=== PATIENT | female | born 2005 | race Caucasian/White ===

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

== ENCOUNTER → 2023-07-19 | Outpatient (REF) | payer MEDICAID, OTHER ==
[2023-07-19 23:21] LABS: CHLAMYDIA DNA AMPLIFICATION NEGATIVE (NEGATIVE); GC DNA AMPLIFICATION NEGATIVE (NEGATIVE)
== END ==
LOC: M SFHCWAGY 17:23
PROVIDERS: ATTEND Nurse Practitioner Family
DX: Z11.3 Encounter for screening for infections with a predominantly sexual mode of transmission (principal)

== ENCOUNTER → 2024-09-15 | Outpatient (CLI) | payer OTHER | LOC: M RAD 14:16 | PROVIDERS: ATTEND Advanced Practice Midwife | DX: O26.891 Other specified pregnancy related conditions, first trimester (principal); R10.2 Pelvic and perineal pain; Z3A.01 Less than 8 weeks gestation of pregnancy ==

== ENCOUNTER → 2024-10-08 | Outpatient (CLI) | payer OTHER ==
[2024-10-08 16:11] LABS: HEMATOCRIT 35.4 % (36.0-47.0); HEMOGLOBIN 11.6 g/dl (12.0-15.5); MEAN CORPUSCULAR HGB CONC 32.8 g/dl (32.0-36.5); MEAN CORPUSCULAR VOLUME 79.2 fl (80.0-96.0); PLATELET COUNT, AUTOMATED 267 10^3/uL (150-450); RED BLOOD COUNT 4.47 10^6/uL (4.00-5.40); WHITE BLOOD COUNT 8.7 10^3/uL (4.0-10.0)
[2024-10-08 17:08] LABS: HIV 1&2 SCREEN NEGATIVE (NEGATIVE); Trichomonas vaginalis (AMP) NOT DETECTED (NEGATIVE)
[2024-10-08 17:16] LABS: HEPATITIS C VIRUS ABY INDEX 0.03 INDEX (<0.8)
[2024-10-08 17:32] LABS: GC DNA AMPLIFICATION NEGATIVE (NEGATIVE)
== END ==
LOC: M PLALAB 13:47
PROVIDERS: ATTEND Nurse Practitioner Family
DX: Z34.81 Encounter for supervision of other normal pregnancy, first trimester (principal)

== ENCOUNTER 2024-11-07 14:26 | Emergency (ER) | payer OTHER ==
[~2024-11-07] VITALS: Ht 165.1 cm; Wt 64.5 kg
[2024-11-07 14:29] VITALS: BP 115/66; TEMP 98.8; O2SAT 98
== END 2024-11-07 19:13 | disposition left against medical advice (07) ==
LOC: M ED 14:26
DX: Z53.21 Procedure and treatment not carried out due to patient leaving prior to being seen by health care provider (principal)

== ENCOUNTER → 2024-11-20 | Outpatient (CLI) | payer OTHER | LOC: M WHC 14:07 | PROVIDERS: ATTEND Advanced Practice Midwife | DX: Z53.9 Procedure and treatment not carried out, unspecified reason (principal) ==

== ENCOUNTER 2025-01-22 16:51 | Outpatient (CLI) | payer OTHER ==
[~2025-01-22] VITALS: Ht 165.1 cm; Wt 66.0 kg
[2025-01-22 17:06] VITALS: BP 109/62
[2025-01-22] MEDS ORDERED: ACET-907 PO (17:07)
[2025-01-22] MEDS ORDERED: HOME MED LIST COMPLETE! XX SCH (17:15)
[2025-01-22 18:37] VITALS: BP 104/59
== END 2025-01-22 19:14 | disposition home or self-care (01) ==
LOC: M LDO 16:51
PROVIDERS: ATTEND Obstetrics & Gynecology
DX: O36.8120 Decreased fetal movements, second trimester, not applicable or unspecified (principal); O34.211 Maternal care for low transverse scar from previous cesarean delivery; Z3A.25 25 weeks gestation of pregnancy
CPT/HCPCS: 59025; G0463

== ENCOUNTER → 2025-01-28 | Outpatient (CLI) | payer OTHER ==
[~2025-01-28] MED LIST changes: +ACET-907 PO
[2025-01-28 13:45] LABS: PLATELET COUNT, AUTOMATED 227 10^3/uL (150-450)
[2025-01-28 14:09] LABS: GLUCOSE CHALLENGE TEST 1 HOUR 77 MG/DL (LESS THAN 140)
[2025-01-28 14:45] LABS: HIV 1&2 SCREEN NEGATIVE (NEGATIVE)
[2025-01-28 14:52] LABS: HEPATITIS C VIRUS ABY INDEX < 0.02 INDEX (<0.8)
[2025-01-28 16:36] LABS: Trichomonas vaginalis (AMP) POSITIVE (NEGATIVE)
[2025-01-28 17:08] LABS: GC DNA AMPLIFICATION NEGATIVE (NEGATIVE)
== END ==
LOC: M PLALAB 11:05
PROVIDERS: ATTEND Nurse Practitioner Family
DX: Z34.80 Encounter for supervision of other normal pregnancy, unspecified trimester (principal)

== ENCOUNTER 2025-03-04 10:06 | Outpatient (CLI) | payer OTHER ==
[~2025-03-04] VITALS: Ht 165.1 cm; Wt 63.6 kg
[~2025-03-04 10:06] MED LIST changes: +ALBUTEROL SULFATE 2.5 MG/0.5 ML INH CONCENTRATE NEB SOLN INH PRN; +EPINEPHrine INJ 1 MG/ML 1ML AMP IM PRN; +diphenhydrAMINE 50 MG/ML VIAL IV PRN
[2025-03-04 10:20] VITALS: BP 101/63; O2SAT 100
[2025-03-04] MEDS ORDERED: ACETAMINOPHEN 325 MG TAB PO ONE (10:30)
[2025-03-04] MEDS: IRON SUCROSE 200MG IVP IV ONE (10:50)
[2025-03-04 11:10] VITALS: BP 110/59; O2SAT 98
[2025-03-04 12:10] VITALS: BP 117/60; O2SAT 100
== END 2025-03-04 12:10 ==
LOC: M INFU 10:06
PROVIDERS: ATTEND Nurse Practitioner Family
DX: D50.9 Iron deficiency anemia, unspecified (principal)
CPT/HCPCS: 96374; J1756

== ENCOUNTER 2025-03-11 10:03 | Outpatient (CLI) | payer OTHER ==
[2025-03-11 10:10] VITALS: BP 99/58; O2SAT 100
[2025-03-11] MEDS: ACETAMINOPHEN 650 MG PO ONE (10:18)
[2025-03-11] MEDS: IRON SUCROSE 200MG IVP IV ONE (10:39)
[2025-03-11 11:00] VITALS: BP 100/63; O2SAT 99
== END 2025-03-11 11:06 | disposition home or self-care (01) ==
LOC: M INFU 10:03
PROVIDERS: ATTEND Nurse Practitioner Family
DX: D50.9 Iron deficiency anemia, unspecified (principal)
CPT/HCPCS: 96374; J1756

== ENCOUNTER 2025-03-23 13:33 | Outpatient (CLI) | payer OTHER ==
[~2025-03-23] VITALS: Ht 165.1 cm; Wt 67.8 kg
[~2025-03-23 13:33] MED LIST changes: -ALBUTEROL SULFATE 2.5 MG/0.5 ML INH CONCENTRATE NEB SOLN INH PRN; -EPINEPHrine INJ 1 MG/ML 1ML AMP IM PRN; -diphenhydrAMINE 50 MG/ML VIAL IV PRN
== END 2025-03-23 14:25 | disposition home or self-care (01) ==
LOC: M LDO 13:33
PROVIDERS: ATTEND Advanced Practice Midwife
DX: O36.8130 Decreased fetal movements, third trimester, not applicable or unspecified (principal); O99.013 Anemia complicating pregnancy, third trimester; O34.211 Maternal care for low transverse scar from previous cesarean delivery; O35.9XX0 Maternal care for (suspected) fetal abnormality and damage, unspecified, not applicable or unspecified; D50.9 Iron deficiency anemia, unspecified; Z3A.33 33 weeks gestation of pregnancy
CPT/HCPCS: 59025; G0463

== ENCOUNTER → 2025-04-09 | Outpatient (CLI) | payer OTHER ==
[2025-04-09 17:46] LABS: PLATELET COUNT, AUTOMATED 272 10^3/uL (150-450)
== END ==
LOC: M PLALAB 15:46
PROVIDERS: ATTEND Nurse Practitioner Family
DX: O99.013 Anemia complicating pregnancy, third trimester (principal); Z3A.36 36 weeks gestation of pregnancy

== ENCOUNTER → 2025-04-09 | Outpatient (REF) | payer OTHER | LOC: M PLALAB 15:17 | PROVIDERS: ATTEND Nurse Practitioner Family | DX: Z36.89 Encounter for other specified antenatal screening (principal); Z3A.36 36 weeks gestation of pregnancy ==

== ENCOUNTER → 2025-04-16 | Outpatient (REF) | payer OTHER ==
[2025-04-16 18:19] LABS: Trichomonas vaginalis (AMP) NOT DETECTED (NEGATIVE)
[2025-04-16 18:43] LABS: GC DNA AMPLIFICATION NEGATIVE (NEGATIVE)
== END ==
LOC: M LAB REF 14:00
PROVIDERS: ATTEND Advanced Practice Midwife
DX: O34.211 Maternal care for low transverse scar from previous cesarean delivery (principal); Z3A.00 Weeks of gestation of pregnancy not specified

== ENCOUNTER 2025-04-21 10:15 | Inpatient (IN) | payer OTHER, MEDICAID ==
[~2025-04-21] VITALS: Ht 165.1 cm; Wt 70.6 kg
[2025-04-21] VITALS (9 sets, daily range): BP systolic 101–129; BP diastolic 56–81
[2025-04-21] MEDS ORDERED: HOME MED LIST COMPLETE! XX SCH (10:30)
[2025-04-21] MEDS ORDERED: NS (Normal Saline) 0.9% 1,000 ML IV ONE (15:05)
[2025-04-21] MEDS: ACETAMINOPHEN 500 MG TAB PO ONE (15:13)
[2025-04-21] MEDS: LR 1,000 ML IV ONE (15:15)
[2025-04-21] MEDS ORDERED: LR 1,000 ML IV ONE (18:00)
[2025-04-21 22:29] LABS: PLATELET COUNT, AUTOMATED 220 10^3/uL (150-450)
[2025-04-21 23:52] LABS: KETONE, URINE AUTO RFX 1+ mg/dL (NEGATIVE); LEUKOCYTE ESTERASE UR AUTO RFX NEGATIVE (NEGATIVE); NITRITE, URINE AUTO RFX NEGATIVE (NEGATIVE); RBC, URINE AUTO RFX 0 /HPF (0-3); SQUAM EPITHELIAL CELL UR AURFX 1 /HPF (0-6); WBC, URINE AUTO RFX 0 /HPF (0-3)
[2025-04-22] VITALS (14 sets, daily range): BP systolic 96–128; BP diastolic 47–75; TEMP 98.2; O2SAT 96–99
[2025-04-22] MEDS: BUTORPHANOL 2 MG/ML 1 ML VIAL IV ONE (01:34)
[2025-04-22] MEDS ORDERED: TRANEXAMIC ACID INJection 1,000 MG in NS 100 ML IV PRN (08:50)
[2025-04-22] MEDS ORDERED: OXYTOCIN DRIP 30 UNITS in IV 1 EA IV PRN (08:50)
[2025-04-22] MEDS ORDERED: LR 1,000 ML IV SCH (08:50)
[2025-04-22] MEDS ORDERED: OXYTOCIN INJ 10UNITS/ML 1ML VIAL IM PRN (08:50)
[2025-04-22] MEDS ORDERED: METHYLERGONOVINE MALEATE 0.2 MG/ML 1 ML VIAL IM PRN (08:50)
[2025-04-22 11:29] LABS: PLATELET COUNT, AUTOMATED 217 10^3/uL (150-450)
[2025-04-22] MEDS: LACTATED RINGER'S 1000 ML IV STA (11:43)
[2025-04-22] MEDS: ceFAZolin SODIUM 2 GM in DEXTROSE 5% (D5W) ADV/MINI-BAG 50 ML IV ONE (12:31)
[2025-04-22] MEDS: BICITRA 30 ML SOLN UDC PO ONE (12:31)
[2025-04-22] MEDS ORDERED: dexAMETHasone 4 MG/ML 1 ML VIAL As Ordered ONE (13:00)
[2025-04-22] MEDS ORDERED: ONDANSETRON 4MG 2ML VIAL As Ordered ONE (13:00)
[2025-04-22] MEDS ORDERED: OXYTOCIN INJ 10UNITS/ML 1ML VIAL As Ordered ONE (13:01)
[2025-04-22] MEDS ORDERED: OXYTOCIN 30UNITS IN 0.9% NaCl 500ML IV BAG IV ONE (13:01)
[2025-04-22] MEDS ORDERED: MORPHINE PRES-FREE INJ 10 MG/10 ML VIAL As Ordered ONE (13:02)
[2025-04-22] MEDS ORDERED: ACETAMINOPHEN 1000MG/100ML IV BAG As Ordered ONE (13:52)
[2025-04-22] MEDS ORDERED: KETOROLAC 30 MG/ML 1 ML VIAL As Ordered ONE (14:05)
[2025-04-22 14:22] LABS: CORD GAS ABE V -1.9; CORD GAS HCO3 V 23.5 MMOL/L; CORD GAS O2 SAT V 29.7 %; CORD GAS PCO2 V 42.4 mmHg; CORD GAS PH V 7.362 UNITS; CORD GAS PO2 V 16.1 mmHg; CORD GAS SBC V 21.3 MMOL/L; CORD GAS TCO2 V 24.8 MMOL/L
[2025-04-22 14:27] LABS: CORD GAS ABE A -2.5; CORD GAS HCO3 A 22.7 MMOL/L; CORD GAS O2 SAT A 23.4 %; CORD GAS PCO2 A 41.0 mmHg; CORD GAS PH A 7.362 UNITS; CORD GAS PO2 A 12.8 mmHg; CORD GAS SBC A 20.7 MMOL/L; CORD GAS TCO2 A 24.0 MMOL/L
[2025-04-22] MEDS ORDERED: MOM 30 ML SUSPENSION UDC PO PRN (19:40)
[2025-04-22] MEDS ORDERED: RHOGAM 300MCG (1500IU) INJ IM SCH (19:40)
[2025-04-22] MEDS ORDERED: ONDANSETRON 4MG 2ML VIAL IV PRN (19:40)
[2025-04-22] MEDS ORDERED: METHYLERGONOVINE MALEATE 0.2 MG TAB PO PRN (19:40)
[2025-04-22] MEDS: SIMETHICONE 80MG CHEW TAB PO PRN (20:06)
[2025-04-22] MEDS: PERCOCET 5MG/325MG TAB PO PRN (20:07)
[2025-04-22] MEDS: KETOROLAC 30 MG/ML 1 ML VIAL IV SCH (21:10)
[2025-04-22] MEDS: DOCUSATE SODIUM 100 MG CAPSULE PO SCH (21:10)
[2025-04-23 02:00] VITALS: BP 100/50; O2SAT 98
[2025-04-23 05:41] VITALS: BP 104/56; O2SAT 99
[2025-04-23 07:45] LABS: PLATELET COUNT, AUTOMATED 212 10^3/uL (150-450)
[2025-04-23] MEDS: PRENATAL VITAMINS CHEWABLE TABLET PO SCH (08:35)
[2025-04-23] MEDS ORDERED: COLA100C5 PO (08:37)
[2025-04-23] MEDS ORDERED: IBUP80TA PO (08:37)
[2025-04-23] MEDS ORDERED: OXYC1TAB23 PO (08:37)
[2025-04-23 09:13] LABS: HIV 1&2 SCREEN NEGATIVE (NEGATIVE)
[2025-04-23 09:21] LABS: HEPATITIS C VIRUS ABY INDEX 0.02 INDEX (<0.8)
[2025-04-23 10:00] VITALS: BP 91/54; O2SAT 100
[2025-04-23 14:09] VITALS: BP 114/63; O2SAT 99
[2025-04-23] MEDS: IBUPROFEN 800 MG TAB PO SCH (17:15)
[2025-04-23 18:00] VITALS: BP 112/74; O2SAT 98
[2025-04-23] MEDS: ALBUTEROL 90 MCG/ACT 8 GM HFA INHALER INH PRN (21:35)
[2025-04-23 22:00] VITALS: BP 113/63; O2SAT 100
[2025-04-24] MEDS: PERCOCET 5MG/325MG TAB PO PRN (00:08)
[2025-04-24 02:00] VITALS: BP 102/57; O2SAT 99
[2025-04-24 06:25] VITALS: BP 105/63; O2SAT 100
[2025-04-24] MEDS: MEASLES,MUMPS,RUBELLA VACCINE INJ (MMR-II) SC.IMMUN ONE (09:00)
[2025-04-24 10:00] VITALS: BP 128/88; O2SAT 100
[2025-04-24] MEDS: FLUZONE VACCINE TRI PF(25-26) 0.5ML SYRINGE IM.IMMUN ONE (12:45)
== END 2025-04-24 12:30 | disposition home or self-care (01) | DRG 540 ==
LOC: M LDO 10:15 → M LDI 21:42 → M OBS 04-22 15:56
PROVIDERS: ADMIT Student in an Organized Health Care Education/Training Program; ATTEND Specialist
PROC: 10D00Z1 Extraction of Products of Conception, Low, Open Approach (ICD-10-PCS; principal; 2025-04-22 13:10)
DX: O34.211 Maternal care for low transverse scar from previous cesarean delivery (principal); Z37.0 Single live birth; Z3A.37 37 weeks gestation of pregnancy